=== PATIENT | female | born 1965 | race Caucasian/White ===

== ENCOUNTER 2019-06-22 02:09 | Inpatient (IN) | payer OTHER ==
[2019-06-22] VITALS (7 sets, daily range): BP systolic 119–150
[~2019-06-22] VITALS: Ht 162.6 cm; Wt 83.5 kg
--- NOTE | 2019-06-22 02:30 | NUR ---
Pt c/o right sided abdominal pain with 1 episode of vomiting x 2 hours [employer].
--- NOTE | 2019-06-22 02:30 | NUR ---
Pt wheeled to bed 6 for evaluation
[2019-06-22] MEDS ORDERED: NACL 0.9% 1,000 ML IV ONE (03:32)
[2019-06-22] MEDS ORDERED: ONDANSETRON HCL 4 MG/2 ML VIAL IVP ONE ×2 (03:45→07:45)
--- NOTE | 2019-06-22 04:06 | NUR ---
# 20 gauge angiocath placed to LAC. Use of asceptic technique. Opsite placed over site. Blood return noted. Blood for lab drawn from site. Flushed with 10 cc of normal saline. No evidence of infiltration noted. Patient tolerated well.
--- NOTE | 2019-06-22 04:14 | NUR ---
Dr. Fox at bedside.
[2019-06-22] MEDS ORDERED: MORPHINE 4 MG/ML INJ. SYRINGE IVP ONE (04:15)
--- NOTE | 2019-06-22 04:45 | NUR ---
Pt to CT via stretcher.
[2019-06-22 04:47] LABS: BASOPHILS % (AUTO) 0.6 % (0.0-2.0); BILIRUBIN,URINE NEGATIVE (NEGATIVE); BLOOD, URINE 1+ (NEGATIVE); CLARITY/URINE CLEAR (CLEAR); COLOR,URINE YELLOW (YELLOW); EOSINOPHILS # (AUTO) 0.1 K/uL (0.0-0.4); EOSINOPHILS % (AUTO) 1.3 % (0.0-4.0); GLUCOSE,URINE NEGATIVE (NEGATIVE); HEMATOCRIT 38.6 % (36-48); KETONES,URINE NEGATIVE (NEGATIVE); LEUKOCYTE ESTERASE ,URINE 1+ (NEGATIVE); LYMPHOCYTES # (AUTO) 1.2 K/uL (1.0-5.5); LYMPHOCYTES % (AUTO) 15.5 % (20.5-51.5); MEAN CORPUSCULAR HEMOGLOBIN 33 pg (27-31); MEAN CORPUSCULAR HGB CONC 34 % (32-36); MEAN CORPUSCULAR VOLUME 98 fL (79.0-98.0); MONOCYTES # (AUTO) 0.4 K/uL (0.0-1.0); MONOCYTES % (AUTO) 5.7 % (1.7-9.3); NEUTROPHILS # (AUTO) 5.9 K/uL (1.8-7.7); NEUTROPHILS % (AUTO) 76.9 % (40.0-70.0); NITRITE, URINE NEGATIVE (NEGATIVE); PLATELET COUNT (AUTO) 260 K/uL (130-430); PROTEIN URINE NEGATIVE (NEGATIVE); RED BLOOD CELL COUNT(AUTO) 3.96 MIL/uL (4.2-6.2); RED CELL DISTRIBUTION WIDTH 12.6 % (9.0-15.0); UROBILINOGEN,URINE 0.2 (0.2-1.0); WHITE BLOOD COUNT (AUTO) 7.7 K/uL (4.8-10.8)
[2019-06-22 04:57] LABS: BACTERIA,URINE FEW /HPF (None Seen)
[2019-06-22 05:02] LABS: ANION GAP 11 (5-15); CALCIUM 8.7 mg/dL (8.4-11.0); CHLORIDE 105 mmol/L (98-107); CREATININE 0.63 mg/dL (0.55-1.30); GLUCOSE 107 mg/dL (70-99); POTASSIUM 3.5 mmol/L (3.5-5.1); SODIUM SERUM 142 mmol/L (136-145); UREA NITROGEN, BLOOD 11 mg/dL (8-21)
[2019-06-22 05:03] LABS: PROTHROMBIN TIME 10.5 SECS (9.5-12.5)
[2019-06-22 05:10] LABS: ALANINE AMINOTRANSFERASE 32 U/L (12-78); ALBUMIN 3.5 g/dL (3.4-4.8); AMYLASE 53 U/L (0-100); ASPARTATE AMINOTRANSFERASE 21 U/L (10-37); LIPASE 96 U/L (73-393); TOTAL BILIRUBIN 0.5 mg/dL (0.0-1.0)
[2019-06-22 05:11] LABS: GFR AFRICAN AMERICAN 127 mL/min (>90)
[2019-06-22] MEDS ORDERED: cefTRIAXone 1 GM in LIDOCAINE 1%, 20 ML MDV 2.1 ML IM ONE (06:15)
[2019-06-22] MEDS ORDERED: cefTRIAXone 1 GM IVPB PREMIX 50 ML IV ONE (06:15)
--- NOTE | 2019-06-22 06:46 | NUR ---
Pt states that pain is coming back. Dr. Fox notified.
[2019-06-22] MEDS ORDERED: KETOROLAC TROMETHAMINE 30 MG VIAL IVP ONE (07:00)
--- NOTE | 2019-06-22 07:00 | NUR ---
Henri garcia in ED - 06/22/19 at 0722 by RAJANI Pt verbalizes improvement in C/P.
--- NOTE | 2019-06-22 07:10 | NUR ---
Report from Bogdan BACA
--- NOTE | 2019-06-22 08:06 | NUR ---
Patient will be admitted to care of Dr. Mirza. Admitted to med surg unit. Will go to room 102B. Belongings list completed. Summary report printed. Report will be given at bedside.
--- NOTE | 2019-06-22 08:20 | NUR ---
ADMISSION NOTE Received patient from ER via lydia, received report from Jayleen BACA. Patient admitted with diagnosis of Renal Colic. Patient oriented to hospital routine, call light, toileting and safety-patient verbalized understanding.
--- NOTE | 2019-06-22 08:25 | NUR ---
NOTE PATIENT ARRIVED FROM ER VIA GURNEY. AMBULATED WITH STEADY GAIT TO BED. A/OX4. DENIES PAIN AT THIS TIME. ROOM AIR. NO ACUTE DISTRESS. NO SOB. RESP EVEN AND UNLABORED. SKIN WARM AND DRY TO TOUCH. IV TO LAC INTACT AND PATENT, SL. ORIENTED PATIENT TO ROOM, BED AND CALL LIGHT. BED IN LOW AND LOCKED POSITION. SIDERAIL UPX2. DISCUSSED PLAN OF CARE AND PT VERBALIZED UNDERSTANDING. FAMILY AT BEDSIDE. ALL NEEDS MET. CONT TO MONITOR. CALL LIGHT IN REACH
[2019-06-22] MEDS ORDERED: MORPHINE 2 MG/ML INJ. SYRINGE IVP PRN (09:15)
[2019-06-22] MEDS ORDERED: ACETAMINOPHEN 325 MG TABLET PO PRN (09:15)
[2019-06-22] MEDS ORDERED: ONDANSETRON HCL 4 MG/2 ML VIAL IVP PRN (09:15)
[2019-06-22] MEDS ORDERED: METOCLOPRAMIDE HCL 10 MG/2 ML VIAL IVP PRN (09:15)
[2019-06-22] MEDS ORDERED: MORPHINE 4 MG/ML INJ. SYRINGE IVP PRN (09:15)
[2019-06-22] MEDS ORDERED: TAMSULOSIN HCL 0.4 MG CAP PO ONE (09:30)
[2019-06-22] MEDS ORDERED: cefTRIAXone 1 GM IVPB PREMIX 50 ML IV SCH (09:30)
--- NOTE | 2019-06-22 09:30 | NUR ---
SEEN AND EXAMINED BY AT BEDSIDE
[2019-06-22] MEDS: D5NS 1,000 ML IV SCH ×2 (10:32→18:14)
--- NOTE | 2019-06-22 10:40 | NUR ---
IV ROCEPHIN MEDICATION HELD DUE TO PATIENT RECEIVED A DOSE OF ROCEPHIN IN ER.
--- NOTE | 2019-06-22 10:50 | NUR ---
PAIN MORPHINE ADMINISTERED FOR 6/10 PAIN TO RIGHT ABDOMEN/BACK, LELO WELL. VITAL SIGN STABLE. ALL NEEDS MET. CALL LIGHT IN REACH. MOTHER AT BEDSIDE
--- NOTE | 2019-06-22 13:00 | NUR ---
NOTE PATIENT AWAKE IN BED. NO C/O DISCOMFORT AT THIS TIME. ALL NEEDS MET. MOTHER AT BEDSIDE. CALL LIGHT IN REACH. CONT TO MONITOR
[2019-06-22] MEDS ORDERED: FLU VACC QS2019-20 36MOS UP/PF 60 MCG/0.5 ML SYRINGE I.M. PRN (15:15)
--- NOTE | 2019-06-22 15:27 | NUR ---
Uro consult called: for Dr. Agee, regarding renal colic, ordered by Dr. Mirza, spoke with Marilyn.
--- NOTE | 2019-06-22 15:50 | NUR ---
DR.COHEN ALSTON CALLED REGARDING CONSULT; REPORT GIVEN. MD ASKED TO SPEAK WITH PATIENT. PATIENT IS DECIDING BETWEEN PASSING STONE AT HOME AND SURGERY. WILL BE IN TONIGHT TO SPEAK TO PATIENT IN PERSON. PATIENT TO CONT NPO AT THIS TIME. Addendum: 06/22/19 at 1612 by Radha Obrien RN AT BEDSIDE
--- NOTE | 2019-06-22 18:56 | NUR ---
CLOSING NOTE PATIENT AWAKE IN BED AWAITING FOR . NO C/O PAIN AT THIS TIME. NO ACUTE DISTRESS. NO SOB. RESPIRATION EVEN AND UNLABORED. SKIN WARM AND DRY TO TOUCH. IV INTACT AND PATENT; LELO IVF. PATIENT CONT TO STRAIN URINE; NO STONES NOTED AT THIS TIME. ALL NEEDS MET. CALL LIGHT IN REACH. CONT TO MONITOR
--- NOTE | 2019-06-22 19:25 | NUR ---
patient received npo for possible surgery . awaiting the urologist to come f\to clarify the procedure as informed procedure, patient is aware
--- NOTE | 2019-06-22 20:19 | NUR ---
Dr Agee in as urology consult in and seen and explained the plan to the patient about the patient not undergoing surgery and will have prescription to go home in am, prescriptions placed in the chart. with orders and carried pout
--- NOTE | 2019-06-22 20:29 | NUR ---
PATIENT INSTRUCTED TO STRAIN ALL URINE AND IS AWARE,AND WILL GO HOME WITH THE SAME REGIMEN TO STRAIN ALL URINE, WILL FOLLOW UP WITH DR HUTCHISON OUTPATIENBT AND WITH INSTRUCTIONS FROM DR HUTCHISON AND WAS GIVEN A CALLING CARD
--- NOTE | 2019-06-22 20:31 | NUR ---
DR ALICIA PAGED FOR DIET ORDERS,
--- NOTE | 2019-06-22 20:45 | NUR ---
Paged Dr. Euceda s/w Gabriel
--- NOTE | 2019-06-22 23:11 | NUR ---
diet given and tolerated. will strain all urine,patient is aware.
[2019-06-23 00:11] VITALS: BP_SYST 112
[2019-06-23] MEDS: D5NS 1,000 ML IV SCH ×2 (02:47→10:16)
[2019-06-23] MEDS ORDERED: TAMSULOSIN HCL 0.4 MG CAP PO SCH ×2 (04:30→09:00)
--- NOTE | 2019-06-23 06:31 | NUR ---
ambulated to the bathroom to void and stained urine but no stones noted. Dr Agee the urologist has okayed the patient for discharge and prescriptions in the chart, will be for discharge today.
[2019-06-23 06:49] LABS: BASOPHILS % (AUTO) 0.5 % (0.0-2.0); EOSINOPHILS # (AUTO) 0.2 K/uL (0.0-0.4); EOSINOPHILS % (AUTO) 3.1 % (0.0-4.0); HEMATOCRIT 33.1 % (36-48); HEMOGLOBIN 11.2 g/dL (12.0-16.0); LYMPHOCYTES # (AUTO) 1.3 K/uL (1.0-5.5); LYMPHOCYTES % (AUTO) 26.3 % (20.5-51.5); MEAN CORPUSCULAR HEMOGLOBIN 34 pg (27-31); MEAN CORPUSCULAR HGB CONC 34 % (32-36); MEAN CORPUSCULAR VOLUME 100 fL (79.0-98.0); MONOCYTES # (AUTO) 0.5 K/uL (0.0-1.0); MONOCYTES % (AUTO) 10.2 % (1.7-9.3); NEUTROPHILS % (AUTO) 59.9 % (40.0-70.0); PLATELET COUNT (AUTO) 211 K/uL (130-430); RED BLOOD CELL COUNT(AUTO) 3.33 MIL/uL (4.2-6.2); RED CELL DISTRIBUTION WIDTH 12.4 % (9.0-15.0)
[2019-06-23 07:00] LABS: WHITE BLOOD COUNT (AUTO) 4.9 K/uL (4.8-10.8)
[2019-06-23 07:06] LABS: ALBUMIN 2.7 g/dL (3.4-4.8); CREATININE 0.56 mg/dL (0.55-1.30); POTASSIUM 3.7 mmol/L (3.5-5.1)
--- NOTE | 2019-06-23 07:30 | NUR ---
Opening Notes Patient received lying comfortably in her bed with respiration even and unlabored. Alert, awake and verbally responsive. Denies any pain or discomfort at this time. IVF infusing well. Call light within the reach. Will continue to monitor.
--- NOTE | 2019-06-23 07:34 | NUR ---
report given to the day shift rn that the prescription of the patient from Dr Agee is in the chart and that okay for the patient discharge from the urology side with prescription.
[2019-06-23 08:00] VITALS: BP_SYST 118
[2019-06-23] MEDS ORDERED: cefTRIAXone 1 GM IVPB PREMIX 50 ML IV SCH (09:00)
--- NOTE | 2019-06-23 09:00 | NUR ---
ATB administration ATB IV given, well tolerated. No signs and symptoms of adverse reactions observed. Call light within the reach. Will continue to monitor.
[2019-06-23 10:00] VITALS: BP_SYST 134
[2019-06-23 10:57] VITALS: BP_SYST 118
[2019-06-23] MEDS ORDERED: TAMS-11 PO (11:11)
[2019-06-23] MEDS ORDERED: IBUP-1970 PO (11:13)
[2019-06-23] MEDS ORDERED: HYDR-4272 PO (11:21)
[2019-06-23] MEDS ORDERED: ONDA4TAB5 PO (11:22)
[2019-06-23] MEDS ORDERED: DOCU-144 PO (11:23)
[2019-06-23] MEDS ORDERED: CEPH-568 PO (11:24)
--- NOTE | 2019-06-23 11:51 | NUR ---
D/C Patient Patient given medication reconciliation form and D/C instructions. Exit Care provided. Patient verbalized understanding. MD discussed with patient the results and treatment provided. Ambulatory with steady gait for discharge to home, accompanied by . Patient in stable condition, ID band removed. IV catheter removed, intact and dressing applied, no active bleeding. Rx medication given. Patient educated on pain management. All belongings sent with patient.
== END 2019-06-23 11:51 | disposition home or self-care (01) | DRG 694 ==
LOC: SED 02:09 → SMU 07:46
PROVIDERS: ADMIT Internal Medicine Hospice and Palliative Medicine; ATTEND Internal Medicine Hospice and Palliative Medicine
DX: N13.30 Unspecified hydronephrosis (principal); N23 Unspecified renal colic; N83.209 Unspecified ovarian cyst, unspecified side
CPT/HCPCS: 36415; 80053; 81000-TC; 82150-TC; 83605; 83690-TC; 84484; 85025; 85379; 85610-TC; 87040-TC; 87086; 96361; 96365; 96375; 99285; J0696; J1885; J2270; J2405; J7030; J7042; Q2037